=== PATIENT | female | born 1930 | race Caucasian/White ===

== ENCOUNTER 2018-03-03 20:46 | Inpatient (IN) | payer MEDICARE, MEDICAID ==
[~2018-03-03] VITALS: Ht 165.1 cm; Wt 61.8 kg
--- NOTE | 2018-03-03 21:00 | NUR ---
PT SENT HERE BY DR. NICHOLSON DUE TO ABNORMAL CHEST XRAY AND C/O COUGHING FOR THE PAST SEVERAL DAYS. PT AAOX3. PT SA02 95% ON 2L 02 VIA NC. OBSERVED PT COUGHING. PT RESTING IN BED IN LOWEST POSITION. WHEELS LOCKED. CALL LIGHT WITHIN REACH.
--- NOTE | 2018-03-03 21:40 | NUR ---
YANNICK HINTON AT BEDSIDE FOR MSE.
[2018-03-03] MEDS ORDERED: LORA-258 PO (21:59)
[2018-03-03] MEDS ORDERED: POTA10TA15 PO (21:59)
[2018-03-03] MEDS ORDERED: MELA3TAB PO (21:59)
[2018-03-03] MEDS ORDERED: CYAN10009 PO (21:59)
[2018-03-03] MEDS ORDERED: BISA10SU21 RC (21:59)
[2018-03-03] MEDS ORDERED: FURO-151 PO (21:59)
[2018-03-03] MEDS ORDERED: DILT240C88 PO (21:59)
[2018-03-03] MEDS ORDERED: MAGN400O6 PO (21:59)
[2018-03-03] MEDS ORDERED: ALBU2.5V38 IH (21:59)
[2018-03-03] MEDS ORDERED: GUAI118.5 PO (21:59)
[2018-03-03] MEDS ORDERED: METO50TA16 PO (21:59)
[2018-03-03] MEDS ORDERED: LEVO25TA2 PO (21:59)
[2018-03-03] MEDS ORDERED: SIMV10TA6 PO (21:59)
[2018-03-03] MEDS ORDERED: DEXT15DR6 OP (21:59)
[2018-03-03] MEDS ORDERED: ASCO500C18 PO (21:59)
[2018-03-03] MEDS ORDERED: ALLO100T PO (21:59)
[2018-03-03] MEDS ORDERED: LACT-214 PO (21:59)
[2018-03-03] MEDS ORDERED: VALS160T2 PO (21:59)
[2018-03-03] MEDS ORDERED: ACET-2154 PO (21:59)
[2018-03-03] MEDS ORDERED: MULT-213 PO (21:59)
[2018-03-03] MEDS ORDERED: CHOL200078 PO (21:59)
[2018-03-03] MEDS ORDERED: DIGO250T PO (21:59)
[2018-03-03] MEDS ORDERED: IV NORMAL SALINE 1000 ML BAG IV ONE ×2 (22:00→22:45)
[2018-03-03] MEDS ORDERED: ACETAMINOPHEN ES 500 MG TABLET PO ONE (22:00)
[2018-03-03] MEDS ORDERED: BENZONATATE 100 MG CAPSULE PO ONE (22:00)
[2018-03-03 22:10] LABS: BASOPHILS # (AUTO) 0.1 K/uL (0.0-8.0); BASOPHILS % (AUTO) 0.2 % (0.0-2.0); HEMATOCRIT 43.1 % (31.2-41.9); HEMOGLOBIN 14.4 g/dL (10.9-14.3); LYMPHOCYTES # (AUTO) 0.2 K/uL (20.0-40.0); LYMPHOCYTES % (AUTO) 0.8 % (20.5-51.5); MEAN CORPUSCULAR HEMOGLOBIN 27.4 uug (24.7-32.8); MEAN CORPUSCULAR HGB CONC 34 g/dL (32.3-35.6); MEAN CORPUSCULAR VOLUME 81.9 fL (75.5-95.3); MONOCYTES # (AUTO) 0.7 K/uL (2.0-10.0); MONOCYTES % (AUTO) 2.3 % (0.0-11.0); NEUTROPHILS % (AUTO) 96.7 % (38.5-71.5); PLATELET COUNT (AUTO) 446 K/uL (179-408); RED BLOOD CELL COUNT(AUTO) 5.26 MIL/uL (3.63-4.92)
[2018-03-03] MEDS ORDERED: MEROPENEM 1,000 MG in IV NORMAL SALINE 250 ML IV ONE (22:15)
[2018-03-03 22:20] LABS: CARBON DIOXIDE 27 mmol/L (21-32); CHLORIDE 95 mmol/L (98-107); GLUCOSE 155 mg/dL (74-106); POTASSIUM 4.7 mmol/L (3.5-5.1); UREA NITROGEN, BLOOD 51 mg/dL (7-18)
[2018-03-03 22:27] LABS: ABG BASE EXCESS 0.3 mmol/L; ABG HCO3 24.6 mmol/L; ABG PCO2 38.8 mmHg (35.0-45.0); ABG PO2 66.3 mmHg (75.0-100.0); ABG SITE LEFT RADIAL; ABG TOTAL HEMOGLOBIN 14.8 G/dL (12.0-16.0); COHb 1.5 % (0.5-1.5); MetHb 0.3 % (0.0-1.5); O2Hb 91.4 % (94.0-97.0); VENT MODE Nasal Cannula
[2018-03-03] MEDS ORDERED: ACETAMINOPHEN ES 500 MG TABLET ONE (22:28)
[2018-03-03] MEDS ORDERED: BENZONATATE 100 MG CAPSULE ONE (22:28)
[2018-03-03] MEDS ORDERED: MEROPENEM 1 G VIAL IV ONE (22:29)
--- NOTE | 2018-03-03 22:30 | NUR ---
PT RESTING IN BED IN LOWEST POSITION. WHEELS LOCKED. NO ACUTE DISTRESS NOTED. SA02 97% ON 6L O2.
[2018-03-03 22:33] LABS: ALANINE AMINOTRANSFERASE 18 U/L (14-59); ALKALINE PHOSPHATASE 104 U/L (50-136); ASPARTATE AMINOTRANSFERASE 27 U/L (15-37); BILIRUBIN,DIRECT 0.2 mg/dL (0.0-0.2); BILIRUBIN,TOTAL 1.1 mg/dL (0.2-1.0); TOTAL PROTEIN, SERUM 7.4 g/dL (6.4-8.2)
--- NOTE | 2018-03-03 23:35 | NUR ---
PAGED EPPIC PANEL ORDERED. WAITING FOR DR SOTELO TO CALL BACK
--- NOTE | 2018-03-03 23:38 | NUR ---
DR WALTER SPEAKING WITH DR SOTELO
--- NOTE | 2018-03-03 23:40 | NUR ---
PT RESTING IN BED IN LOWEST POSITION. SA02 98% ON 6L O2 VIA FACE MASK. PT APPEARS ANXIOUS AND ATTEMPTING TO TAKE OFF MASK.
[2018-03-03] MEDS ORDERED: LORAZEPAM 2 MG/1 ML VIAL ONE (23:44)
[2018-03-03] MEDS ORDERED: BISACODYL 10 MG SUPP.RECT RC PRN (23:45)
[2018-03-03] MEDS ORDERED: GUAIFENESIN/DEXTROMETHORPHAN 5 ML UDC PO PRN (23:45)
[2018-03-03] MEDS ORDERED: LORAZEPAM 0.5 MG TABLET PO PRN (23:45)
[2018-03-03] MEDS ORDERED: MAGNESIUM HYDROXIDE 30 ML LIQUID UDC PO PRN (23:45)
[2018-03-03] MEDS ORDERED: LORAZEPAM 2 MG/1 ML VIAL IV ONE (23:45)
[2018-03-03] MEDS ORDERED: IV NS 1000 ML 1,000 ML IV PRN (23:48)
[2018-03-04] MEDS ORDERED: ENOXAPARIN SODIUM 30 MG/0.3 ML DISP.SYRIN SQ SCH
[2018-03-04] MEDS ORDERED: ONDANSETRON 4 MG/2 ML VIAL IV PRN
[2018-03-04] MEDS ORDERED: MAGNESIUM HYDROXIDE 30 ML LIQUID UDC PO PRN
[2018-03-04] MEDS ORDERED: CLINDAMYCIN PHOSPHATE 900 MG/6 ML VIAL ONE (00:29)
[2018-03-04] MEDS ORDERED: CLINDAMYCIN PHOSPHATE IV 900 MG in IV DEXTROSE 5% 100 ML IV ONE (00:30)
--- NOTE | 2018-03-04 00:30 | NUR ---
gave report to Etta MOREL
--- NOTE | 2018-03-04 00:44 | NUR ---
Pt. admitted to [facility] , under care of Dr. Sarmiento. Belongs List completed. MRSA Swab completed.
[2018-03-04 01:00] VITALS: BP 140/55
--- NOTE | 2018-03-04 01:30 | NUR ---
Received pt in unit via [facility]. Pt alert and oriented to self, no s/s acute distress noted at this time. Noted to have cough, but no SOB- On 6L O2 via mask. Vital signs WNL. Tele monitor noted to be sinus rhythm with HR at 60. Unit orientation provided. Pertinent assessments done. Bed in low, locked position with bed alarm on. Call light within reach. Safety environment provided. Will continue to monitor closely.
[2018-03-04 03:33] VITALS: BP 128/56
--- NOTE | 2018-03-04 04:05 | NUR ---
CORRECTION FOR PREVIOUS NOTE ENTERED 03/04 130 -- TELE NOTED TO BE A-FIB WITH HR AT 60.
[2018-03-04] MEDS ORDERED: MEROPENEM 1 G VIAL IV ONE (05:20)
[2018-03-04] MEDS: MEROPENEM 1 G in IV NORMAL SALINE 100 ML IV SCH ×3 (06:03→21:27)
--- NOTE | 2018-03-04 06:13 | NUR ---
No respiratory distress throughout the night. Melissa care and back care provided. All needs met. Safety measures enhanced. Will endorse accordingly.
[2018-03-04 06:53] LABS: BASOPHILS # (AUTO) 0.1 K/uL (0.0-8.0); BASOPHILS % (AUTO) 0.3 % (0.0-2.0); HEMATOCRIT 40.1 % (31.2-41.9); HEMOGLOBIN 13.4 g/dL (10.9-14.3); LYMPHOCYTES # (AUTO) 0.2 K/uL (20.0-40.0); LYMPHOCYTES % (AUTO) 0.8 % (20.5-51.5); MEAN CORPUSCULAR HEMOGLOBIN 27.3 uug (24.7-32.8); MEAN CORPUSCULAR HGB CONC 34 g/dL (32.3-35.6); MEAN CORPUSCULAR VOLUME 81.6 fL (75.5-95.3); MONOCYTES # (AUTO) 0.7 K/uL (2.0-10.0); MONOCYTES % (AUTO) 2.8 % (0.0-11.0); NEUTROPHILS # (AUTO) 24.4 K/uL (1.8-8.9); NEUTROPHILS % (AUTO) 96.1 % (38.5-71.5); PLATELET COUNT (AUTO) 372 K/uL (179-408); RED BLOOD CELL COUNT(AUTO) 4.91 MIL/uL (3.63-4.92); WHITE BLOOD COUNT (AUTO) 25.4 K/uL (3.8-11.8)
[2018-03-04 07:03] LABS: CARBON DIOXIDE 25 mmol/L (21-32); CHLORIDE 100 mmol/L (98-107); CREATININE 0.9 mg/dL (0.6-1.3); GLUCOSE 129 mg/dL (74-106); PHOSPHOROUS 3.9 mg/dL (2.5-4.9); POTASSIUM 3.9 mmol/L (3.5-5.1); UREA NITROGEN, BLOOD 49 mg/dL (7-18)
--- NOTE | 2018-03-04 07:31 | NUR ---
patient resting comfortably in bed at this time. on oxygen 6L mask. stable condition, no s/s of respiratory distress. lungs sound like crackles, sounds very congested. bed in locked/low position, side rails up x2, bed alarm on, call light within reach of patient. will continue to monitor.
[2018-03-04] MEDS: LEVOTHYROXINE SODIUM 25 MCG TABLET PO SCH (07:42)
[2018-03-04] MEDS ORDERED: Medication Not On Formulary EA (Multivitamins W-Minerals (Multivitamin With Minerals) 1 PO SCH (09:00)
[2018-03-04] MEDS ORDERED: Medication Not On Formulary EA (Ascorbic Acid (Vitamin C) 500 MG) PO SCH (09:00)
[2018-03-04] MEDS ORDERED: FUROSEMIDE 40 MG TABLET PO SCH (09:00)
[2018-03-04] MEDS ORDERED: LACTOSE FREE FOOD PO SCH (09:00)
[2018-03-04] MEDS: CHOLECALCIFEROL 1,000 UNIT TABLET PO SCH (09:21)
[2018-03-04] MEDS: CYANOCOBALAMIN 1,000 MCG TABLET PO SCH (09:22)
[2018-03-04] MEDS: ASCORBIC ACID 500 MG TABLET PO SCH ×2 (09:23→21:16)
[2018-03-04] MEDS: ALLOPURINOL 100 MG TABLET PO SCH (09:23)
[2018-03-04] MEDS: DILTIAZEM HCL CD 240 MG CAP.SR.24H PO SCH (09:23)
[2018-03-04] MEDS: FUROSEMIDE 40 MG/4 ML VIAL IV SCH ×2 (09:23→21:16)
[2018-03-04] MEDS: VALSARTAN 160 MG TABLET PO SCH (09:23)
[2018-03-04] MEDS: MULTIVIT, IRON, MIN NO. 8, FA TABLET PO SCH (09:23)
[2018-03-04] MEDS: METOPROLOL TARTRATE 50 MG TABLET PO SCH ×2 (09:24→21:00)
--- NOTE | 2018-03-04 09:30 | NUR ---
changed patient's oxygen from O2 6L Mask to O2 4L Nasal Cannula. Saturating within normal limits at this time. will continue to monitor.
[2018-03-04 11:27] VITALS: BP 111/46
[2018-03-04 12:30] LABS: IRON, SERUM 11 ug/dL (50-175)
[2018-03-04 12:52] LABS: CHOLESTEROL < 50 mg/dL (<200); HDL CHOLESTEROL 14 mg/dL (40-60); TRIGLYCERIDES 53 MG/DL (30-150)
[2018-03-04] MEDS: DIGOXIN 250 MCG TABLET PO SCH (13:00)
[2018-03-04 13:21] LABS: THYROID STIMULATING HORMONE 0.705 mIU/mL (0.358-3.740)
--- NOTE | 2018-03-04 13:23 | NUR ---
physical therapy consulting with pt at this time. vitals wnl during activity.
--- NOTE | 2018-03-04 13:26 | NUR ---
non-administration medication: Digoxin 250 mcg - patient's heart rate below 60 (56).
[2018-03-04] MEDS: ALBUTEROL SULFATE 2.5 MG/3 ML NEBU IH PRN (13:34)
[2018-03-04 15:35] VITALS: BP 143/51
[2018-03-04] MEDS: POLYVINYL ALCOHOL OPHT DROPS 15 ML BOTTLE EACHEYE SCH ×2 (17:35→21:16)
[2018-03-04] MEDS: ENSURE WITH FIBER 237 ML LIQUID (CHOCOLATE) PO SCH (17:35)
--- NOTE | 2018-03-04 18:51 | NUR ---
controlled afib on telemetry with HR of 60 at this time. stable condition, no s/s of distress. turned/repositioned q2h hours. reorientation provided. patient's lungs continue to sound congested with crackling. breathing treatment per RT was given, lasix administered. bed in locked/low position, side rails up x2, bed alarm on, call light within reach.
[2018-03-04 19:19] VITALS: BP 128/50
--- NOTE | 2018-03-04 19:50 | NUR ---
Patient's daughter called asking for a "prognosis." I gave her an update on patient condition. Daughter was asking if her mother was going to live or . I stated that's not something I am able to tell her and that pts vital signs have been stable all day. Per dayshift RN, no significant events had occurred. Patient is asleep at this time.
[2018-03-04] MEDS ORDERED: SIMVASTATIN 10 MG TABLET PO SCH (21:00)
[2018-03-04] MEDS: MELATONIN 3 MG TABLET PO SCH (21:16)
[2018-03-04 21:43] LABS: *BILIRUBIN,URIN NEGATIVE (NEGATIVE); *BLOOD, URINE Trace-lysed (NEGATIVE); *KETONES,URINE TRACE (NEGATIVE); *PROTEIN,URINE NEGATIVE (NEGATIVE); *UROBILINOGEN,URINE 0.2 E.U./dl (NORMAL); NITRITE, URINE NEGATIVE (NEGATIVE); UGLUCOSE NEGATIVE (NEGATIVE)
[2018-03-04 21:56] LABS: *CLARITY,URINE SLIGHTLY CLOUDY (CLEAR); *COLOR,URINE YELLOW (YELLOW); LEUKOCYTE ESTERASE ,URINE 1+ (NEGATIVE)
[2018-03-04 21:58] LABS: BACTERIA,URINE FEW /HPF (NONE SEEN); MUCUS,URINE FEW /LPF (0-FEW); SQUAMOUS EPITHELIAL CELL,UR MANY /HPF (NONE SEEN); WBC,URINE 20-50 /HPF (0-3); YEAST,URINE FEW /HPF (NONE SEEN)
[2018-03-04 23:45] VITALS: BP 124/43
--- NOTE | 2018-03-05 02:39 | NUR ---
Relayed critical labs results to on-call Torsten. Blood cultures drawn 02/01 positive for gram-negative coccobacilli. His response was "OK"
[2018-03-05 03:36] VITALS: BP 135/42
[2018-03-05] MEDS: MEROPENEM 1 G in IV NORMAL SALINE 100 ML IV SCH ×2 (05:24→17:06)
[2018-03-05] MEDS: HYDROCODONE/APAP 5-325MG TABLET PO PRN ×2 (05:52→20:36)
[2018-03-05] MEDS: LEVOTHYROXINE SODIUM 25 MCG TABLET PO SCH (06:03)
[2018-03-05 06:18] LABS: ALANINE AMINOTRANSFERASE 12 U/L (14-59); ALKALINE PHOSPHATASE 85 U/L (50-136); ASPARTATE AMINOTRANSFERASE 10 U/L (15-37); BILIRUBIN,TOTAL 0.6 mg/dL (0.2-1.0); CARBON DIOXIDE 29 mmol/L (21-32); CHLORIDE 102 mmol/L (98-107); CREATININE 0.9 mg/dL (0.6-1.3); GLUCOSE 101 mg/dL (74-106); MAGNESIUM 2.3 mg/dL (1.8-2.4); PHOSPHOROUS 2.8 mg/dL (2.5-4.9); POTASSIUM 3.6 mmol/L (3.5-5.1); TOTAL PROTEIN, SERUM 5.9 g/dL (6.4-8.2); UREA NITROGEN, BLOOD 52 mg/dL (7-18)
[2018-03-05 06:19] LABS: BASOPHILS % (AUTO) 0.1 % (0.0-2.0); HEMATOCRIT 38.5 % (31.2-41.9); LYMPHOCYTES # (AUTO) 0.4 K/uL (20.0-40.0); LYMPHOCYTES % (AUTO) 2.3 % (20.5-51.5); MEAN CORPUSCULAR HEMOGLOBIN 27.3 uug (24.7-32.8); MEAN CORPUSCULAR HGB CONC 34 g/dL (32.3-35.6); MEAN CORPUSCULAR VOLUME 81.1 fL (75.5-95.3); MONOCYTES # (AUTO) 0.8 K/uL (2.0-10.0); NEUTROPHILS # (AUTO) 18.2 K/uL (1.8-8.9); NEUTROPHILS % (AUTO) 93.6 % (38.5-71.5); PLATELET COUNT (AUTO) 361 K/uL (179-408); RED BLOOD CELL COUNT(AUTO) 4.75 MIL/uL (3.63-4.92); WHITE BLOOD COUNT (AUTO) 19.5 K/uL (3.8-11.8)
--- NOTE | 2018-03-05 07:23 | NUR ---
patient resting comfortably in bed at this time. on O2 2L Nasal cannula. stable condition, no s/s of distress. will turn patient q2h and provide skin care. wound care consult ordered for bilateral under breast. will continue to monitor. bed alarm on, call light within reach. bed in locked/low position.
[2018-03-05] MEDS: ENSURE WITH FIBER 237 ML LIQUID (CHOCOLATE) PO SCH ×3 (08:18→17:05)
[2018-03-05] MEDS: ALLOPURINOL 100 MG TABLET PO SCH (08:34)
[2018-03-05] MEDS: POLYVINYL ALCOHOL OPHT DROPS 15 ML BOTTLE EACHEYE SCH ×4 (08:34→20:23)
[2018-03-05] MEDS: FUROSEMIDE 40 MG/4 ML VIAL IV SCH (08:34)
[2018-03-05] MEDS: METOPROLOL TARTRATE 50 MG TABLET PO SCH ×2 (08:35→20:23)
[2018-03-05] MEDS: CYANOCOBALAMIN 1,000 MCG TABLET PO SCH (08:35)
[2018-03-05] MEDS: MULTIVIT, IRON, MIN NO. 8, FA TABLET PO SCH (08:35)
[2018-03-05] MEDS: ASCORBIC ACID 500 MG TABLET PO SCH ×2 (08:35→20:23)
[2018-03-05] MEDS: DILTIAZEM HCL CD 240 MG CAP.SR.24H PO SCH (08:36)
[2018-03-05] MEDS: VALSARTAN 160 MG TABLET PO SCH (08:36)
[2018-03-05] MEDS: CHOLECALCIFEROL 1,000 UNIT TABLET PO SCH (08:37)
[2018-03-05] MEDS: ENOXAPARIN SODIUM 30 MG/0.3 ML DISP.SYRIN SQ SCH (08:39)
[2018-03-05 09:21] VITALS: BP 142/67
[2018-03-05] MEDS ORDERED: POTASSIUM CHLORIDE 20 MEQ TAB.PRT.SR PO ONE (09:30)
[2018-03-05 11:30] VITALS: BP 121/46
[2018-03-05] MEDS: DIGOXIN 250 MCG TABLET PO SCH (13:00)
--- NOTE | 2018-03-05 13:01 | NUR ---
non-administration medication - digoxin 250 mcg: patient's HR 58. *Medication pulled out of medication pixis and tablet taken out of packaging but was NOT administered. Medication safely discarded.
[2018-03-05] MEDS: POTASSIUM CHLORIDE 10 MEQ TAB.PRT.SR PO SCH (14:04)
--- NOTE | 2018-03-05 14:33 | NUR ---
WOUND CARE CONSULT: PT PRESENTS WITH SACRAL SCARRING AND BILATERAL BREASTFOLD REDNESS AND RASH, PRESENT ON ADMISSION. MULTIPLE RAISED SKIN LESIONS NOTED TO BACK AND BODY INCLUDING BREASTFOLDS. RECOMMENDATIONS MADE FOR SKIN PROTECTION AND DISCUSSED WITH NURSING STAFF. PT IS INCONTINENT. CURRENT ASHLEY SCORE IS 13. WILL SEE PRN. HINTON IN AGREEMENT WITH PLAN OF CARE. Addendum: 03/05/18 at 1435 by DOE MARSHALL RN Amended: Links added.
[2018-03-05] MEDS: ALBUTEROL SULFATE 2.5 MG/3 ML NEBU IH PRN ×2 (14:36→21:14)
[2018-03-05 15:34] VITALS: BP 111/49
[2018-03-05] MEDS: CLOTRIMAZOLE 1% CREAM 30 GM TUBE TOP SCH (17:05)
[2018-03-05 19:33] VITALS: BP 136/60
[2018-03-05] MEDS: MELATONIN 3 MG TABLET PO SCH (20:23)
--- NOTE | 2018-03-05 21:10 | NUR ---
Pt daughter called for an update. Pt is resting comfortably. PRN [place] given for c/o right shoulder pain. HOB elevated and pt repositioned for comfort. Will continue to monitor.
[2018-03-06 03:25] VITALS: BP 129/53
[2018-03-06] MEDS: ALBUTEROL SULFATE 2.5 MG/3 ML NEBU IH PRN ×2 (04:53→22:27)
[2018-03-06] MEDS: LEVOTHYROXINE SODIUM 25 MCG TABLET PO SCH (06:05)
[2018-03-06] MEDS: HYDROCODONE/APAP 5-325MG TABLET PO PRN (06:06)
[2018-03-06] MEDS: MEROPENEM 1 G in IV NORMAL SALINE 100 ML IV SCH ×2 (06:06→17:35)
[2018-03-06 07:17] LABS: BASOPHILS % (AUTO) 0.1 % (0.0-2.0); HEMOGLOBIN 13.7 g/dL (10.9-14.3); LYMPHOCYTES # (AUTO) 0.8 K/uL (20.0-40.0); MEAN CORPUSCULAR HEMOGLOBIN 27.4 uug (24.7-32.8); MEAN CORPUSCULAR HGB CONC 33 g/dL (32.3-35.6); MEAN CORPUSCULAR VOLUME 82.1 fL (75.5-95.3); MONOCYTES # (AUTO) 0.9 K/uL (2.0-10.0); MONOCYTES % (AUTO) 4.4 % (0.0-11.0); NEUTROPHILS # (AUTO) 18.7 K/uL (1.8-8.9); NEUTROPHILS % (AUTO) 91.5 % (38.5-71.5); RED BLOOD CELL COUNT(AUTO) 4.99 MIL/uL (3.63-4.92); WHITE BLOOD COUNT (AUTO) 20.4 K/uL (3.8-11.8)
[2018-03-06 07:50] LABS: PLATELET COUNT (AUTO) 456 K/uL (179-408)
--- NOTE | 2018-03-06 08:00 | NUR ---
Received pt with no immediate s/s of SOB, pain, distress or discomfort.
[2018-03-06] MEDS: CLOTRIMAZOLE 1% CREAM 30 GM TUBE TOP SCH ×2 (08:56→17:35)
[2018-03-06] MEDS: ENSURE WITH FIBER 237 ML LIQUID (CHOCOLATE) PO SCH ×3 (08:57→17:36)
[2018-03-06] MEDS: POLYVINYL ALCOHOL OPHT DROPS 15 ML BOTTLE EACHEYE SCH ×4 (08:57→21:16)
[2018-03-06] MEDS: CYANOCOBALAMIN 1,000 MCG TABLET PO SCH (08:58)
[2018-03-06] MEDS: DILTIAZEM HCL CD 240 MG CAP.SR.24H PO SCH (09:00)
[2018-03-06] MEDS: ASCORBIC ACID 500 MG TABLET PO SCH (09:00)
[2018-03-06] MEDS: CHOLECALCIFEROL 1,000 UNIT TABLET PO SCH (09:01)
[2018-03-06] MEDS: MULTIVIT, IRON, MIN NO. 8, FA TABLET PO SCH (09:01)
[2018-03-06] MEDS: VALSARTAN 160 MG TABLET PO SCH (09:01)
[2018-03-06] MEDS: POTASSIUM CHLORIDE 10 MEQ TAB.PRT.SR PO SCH (09:02)
[2018-03-06] MEDS: METOPROLOL TARTRATE 50 MG TABLET PO SCH (09:02)
[2018-03-06] MEDS: ALLOPURINOL 100 MG TABLET PO SCH (09:02)
[2018-03-06] MEDS: ENOXAPARIN SODIUM 30 MG/0.3 ML DISP.SYRIN SQ SCH (09:03)
[2018-03-06 09:27] LABS: CARBON DIOXIDE 27 mmol/L (21-32); CHLORIDE 102 mmol/L (98-107); CREATININE 0.8 mg/dL (0.6-1.3); GLUCOSE 109 mg/dL (74-106); MAGNESIUM 2.5 mg/dL (1.8-2.4); PHOSPHOROUS 2.5 mg/dL (2.5-4.9); POTASSIUM 3.9 mmol/L (3.5-5.1); UREA NITROGEN, BLOOD 45 mg/dL (7-18)
--- NOTE | 2018-03-06 10:00 | NUR ---
Pt compliant with medications. Noted decrease in appetite
[2018-03-06 10:33] LABS: BAND % (MANUAL) 1 % (0-10); LYMPHOCYTES % (MANUAL) 3 % (20-40); MONOCYTES % (MANUAL) 5 % (2-10); MYELOCYTES % 1 % (0-0); NEUTROPHILS % (MANUAL) 90 % (42-75)
[2018-03-06 11:01] VITALS: BP 102/38
--- NOTE | 2018-03-06 12:00 | NUR ---
daughter was in the room, most current updated informed to her. Pt is requesting that gives her a call an informs her on recent xray orders
[2018-03-06] MEDS: ACETAMINOPHEN 325 MG TABLET PO PRN (12:41)
[2018-03-06 16:05] VITALS: BP 103/40
--- NOTE | 2018-03-06 16:48 | NUR ---
new orders for speech and swallow evaluation for possible diet modification
--- NOTE | 2018-03-06 17:09 | NUR ---
Patient family reported to FSW that patient was unable to swallow well on Soft diet. RD spoke with RN. RN reported that patient may need to be downgraded pending swallow eval recommendation. Swallow evaluation recommendation states that pt cough is unrelated to swallow function. Addendum: 03/06/18 at [address] Amended: Links added.
--- NOTE | 2018-03-06 17:19 | NUR ---
Patient family member notified FSW that pt was not able to chew/swallow well on Soft diet. RD spoke with RN. RN suggested that pt may need to downgrade diet pending swallow eval. Swallow evaluation recommendation states that pt cough is not related to pt's swallow function. Addendum: 03/06/18 at [address] Amended: Links added.
[2018-03-06] MEDS ORDERED: FUROSEMIDE 20 MG/2 ML VIAL IV ONE (18:30)
[2018-03-06 19:00] VITALS: BP 122/80
[2018-03-06] MEDS: FLUCONAZOLE 200 MG/NS 100ML IV 100 MG in PREMIXED 1 EACH IV SCH ×2 (19:13→19:29)
[2018-03-06] MEDS: Z GUARD REMEDY PASTE 57 GM TUBE TOP PRN (21:16)
[2018-03-06] MEDS: MUPIROCIN 2% OINT 22 GM TUBE NS SCH (21:16)
[2018-03-07 04:00] VITALS: BP 158/64
[2018-03-07] MEDS: MEROPENEM 1 G in IV NORMAL SALINE 100 ML IV SCH ×2 (05:42→17:20)
[2018-03-07] MEDS: ACETAMINOPHEN 325 MG TABLET PO PRN ×2 (06:09→15:22)
[2018-03-07] MEDS: LEVOTHYROXINE SODIUM 25 MCG TABLET PO SCH (06:09)
[2018-03-07 06:52] LABS: CARBON DIOXIDE 31 mmol/L (21-32); CHLORIDE 104 mmol/L (98-107); CREATININE 0.7 mg/dL (0.6-1.3); GLUCOSE 132 mg/dL (74-106); MAGNESIUM 2.3 mg/dL (1.8-2.4); PHOSPHOROUS 2.6 mg/dL (2.5-4.9); UREA NITROGEN, BLOOD 33 mg/dL (7-18)
[2018-03-07 07:11] LABS: BASOPHILS % (AUTO) 0.1 % (0.0-2.0); EOSINOPHILS % (AUTO) 0.1 % (0.0-7.0); HEMATOCRIT 40.6 % (31.2-41.9); HEMOGLOBIN 13.6 g/dL (10.9-14.3); LYMPHOCYTES # (AUTO) 0.5 K/uL (20.0-40.0); LYMPHOCYTES % (AUTO) 2.9 % (20.5-51.5); MEAN CORPUSCULAR HEMOGLOBIN 27.5 uug (24.7-32.8); MEAN CORPUSCULAR HGB CONC 34 g/dL (32.3-35.6); MEAN CORPUSCULAR VOLUME 81.8 fL (75.5-95.3); MONOCYTES # (AUTO) 0.9 K/uL (2.0-10.0); MONOCYTES % (AUTO) 5.6 % (0.0-11.0); NEUTROPHILS # (AUTO) 14.8 K/uL (1.8-8.9); NEUTROPHILS % (AUTO) 91.3 % (38.5-71.5); PLATELET COUNT (AUTO) 409 K/uL (179-408); RED BLOOD CELL COUNT(AUTO) 4.96 MIL/uL (3.63-4.92); WHITE BLOOD COUNT (AUTO) 16.1 K/uL (3.8-11.8)
[2018-03-07] MEDS: DILTIAZEM HCL CD 120 MG CAP.SR.24H PO SCH (08:57)
[2018-03-07] MEDS: VALSARTAN 160 MG TABLET PO SCH (08:58)
[2018-03-07] MEDS: ENOXAPARIN SODIUM 30 MG/0.3 ML DISP.SYRIN SQ SCH (08:59)
[2018-03-07] MEDS: ENSURE WITH FIBER 237 ML LIQUID (CHOCOLATE) PO SCH ×3 (09:00→17:19)
[2018-03-07] MEDS: POLYVINYL ALCOHOL OPHT DROPS 15 ML BOTTLE EACHEYE SCH ×4 (09:01→22:17)
[2018-03-07] MEDS: CLOTRIMAZOLE 1% CREAM 30 GM TUBE TOP SCH ×2 (09:01→17:19)
[2018-03-07] MEDS: MUPIROCIN 2% OINT 22 GM TUBE NS SCH ×2 (09:01→22:19)
--- NOTE | 2018-03-07 09:15 | NUR ---
Pt was complaint with morning medications. Explained to pt regarding disease process and pt seems to understand.
--- NOTE | 2018-03-07 09:53 | NUR ---
Informed by ST that diet will changed to puree with thin liquids
[2018-03-07 11:22] VITALS: BP 110/44
[2018-03-07 15:12] VITALS: BP 135/60
--- NOTE | 2018-03-07 17:36 | NUR ---
Noted pt has been compliant with medications and nursing care. Pt is noted to have been more alert and awake since yesterday. Assisted giving dinner and prison through her soup pt stated she wanted to feed herself. Pt is eating her soup on her own. Pt is able to verbalize what she wants. Notable improvement from yesterday. Still noted minimal dinner intake about 25%. Pt is doing well on puree diet.
--- NOTE | 2018-03-07 17:46 | NUR ---
Pt verbalized she wanted cold milk. Gave pt cold milk
[2018-03-07] MEDS: ALBUTEROL SULFATE 2.5 MG/3 ML NEBU IH PRN (18:29)
[2018-03-07 19:00] VITALS: BP 129/58
--- NOTE | 2018-03-07 19:10 | NUR ---
Received patient sleeping comfortably during initial rounds. No s/s of respiratory distress noted. Safety mesaures maintained. Continue care as planned.
[2018-03-07] MEDS: FLUCONAZOLE 200 MG/NS 100ML IV 100 MG in PREMIXED 1 EACH IV SCH (20:08)
[2018-03-07] MEDS ORDERED: BISACODYL 10 MG SUPP.RECT RC ONE (23:45)
[2018-03-08 04:00] VITALS: BP 120/87
[2018-03-08] MEDS: MEROPENEM 1 G in IV NORMAL SALINE 100 ML IV SCH (05:44)
[2018-03-08] MEDS: LEVOTHYROXINE SODIUM 25 MCG TABLET PO SCH (05:47)
[2018-03-08] MEDS: ACETAMINOPHEN 325 MG TABLET PO PRN ×2 (05:48→17:59)
--- NOTE | 2018-03-08 06:23 | NUR ---
Slept good. Medicated once for complaint of low back pain. Dulcolax supp ordered and given very effective. Had large BM, good navjot care/skin care rendered. No fall/injury. Infrequent non productive cough noted. HOB elevated at all times. No s/s of respiratory distress. No s/s of adverse reaction noted from IV antibiotics. Continue care as planned.
[2018-03-08 06:29] LABS: BASOPHILS % (AUTO) 0.1 % (0.0-2.0); EOSINOPHILS % (AUTO) 0.2 % (0.0-7.0); HEMOGLOBIN 13.7 g/dL (10.9-14.3); LYMPHOCYTES # (AUTO) 0.9 K/uL (20.0-40.0); LYMPHOCYTES % (AUTO) 4.7 % (20.5-51.5); MEAN CORPUSCULAR HEMOGLOBIN 27.1 uug (24.7-32.8); MEAN CORPUSCULAR HGB CONC 33 g/dL (32.3-35.6); MEAN CORPUSCULAR VOLUME 81.2 fL (75.5-95.3); MONOCYTES # (AUTO) 1.1 K/uL (2.0-10.0); NEUTROPHILS # (AUTO) 16.8 K/uL (1.8-8.9); PLATELET COUNT (AUTO) 416 K/uL (179-408); RED BLOOD CELL COUNT(AUTO) 5.05 MIL/uL (3.63-4.92); WHITE BLOOD COUNT (AUTO) 18.9 K/uL (3.8-11.8)
[2018-03-08 06:41] LABS: ALANINE AMINOTRANSFERASE 36 U/L (14-59); ALKALINE PHOSPHATASE 88 U/L (50-136); ASPARTATE AMINOTRANSFERASE 34 U/L (15-37); BILIRUBIN,TOTAL 0.6 mg/dL (0.2-1.0); CARBON DIOXIDE 31 mmol/L (21-32); CHLORIDE 103 mmol/L (98-107); CREATININE 0.6 mg/dL (0.6-1.3); GLUCOSE 106 mg/dL (74-106); POTASSIUM 4.1 mmol/L (3.5-5.1); TOTAL PROTEIN, SERUM 6.5 g/dL (6.4-8.2); UREA NITROGEN, BLOOD 25 mg/dL (7-18)
[2018-03-08 07:06] LABS: BAND % (MANUAL) 4 % (0-10); EOSINOPHILS % (MANUAL) 1 % (0-8); LYMPHOCYTES % (MANUAL) 6 % (20-40); METAMYELOCYTES % 1 % (0-1); MONOCYTES % (MANUAL) 6 % (2-10); MYELOCYTES % 2 % (0-0); NEUTROPHILS % (MANUAL) 80 % (42-75)
--- NOTE | 2018-03-08 07:30 | NUR ---
AWAKE, FORGETFUL, REORIENTED X 3. ASSISTED WITH BREAKFAST , APPETITE BETTER THAN YESTERDAY PER MID LEVEL CLINICIAN. RETURNED BACK TO SLEEP . NO DISTRESS NOTED.
[2018-03-08] MEDS: ENSURE WITH FIBER 237 ML LIQUID (CHOCOLATE) PO SCH ×3 (08:49→17:53)
[2018-03-08] MEDS: ENOXAPARIN SODIUM 30 MG/0.3 ML DISP.SYRIN SQ SCH (08:52)
[2018-03-08] MEDS: CLOTRIMAZOLE 1% CREAM 30 GM TUBE TOP SCH ×2 (08:55→17:53)
[2018-03-08] MEDS: MUPIROCIN 2% OINT 22 GM TUBE NS SCH (08:55)
[2018-03-08] MEDS: Z GUARD REMEDY PASTE 57 GM TUBE TOP PRN (08:55)
[2018-03-08] MEDS: VALSARTAN 160 MG TABLET PO SCH (08:56)
[2018-03-08] MEDS: POLYVINYL ALCOHOL OPHT DROPS 15 ML BOTTLE EACHEYE SCH ×3 (08:56→17:53)
[2018-03-08] MEDS: DILTIAZEM HCL CD 120 MG CAP.SR.24H PO SCH (08:57)
--- NOTE | 2018-03-08 10:00 | NUR ---
RESTING WELL, WATCHING TV. NO DISTRESS NOTED.
[2018-03-08 11:40] VITALS: BP 117/66
--- NOTE | 2018-03-08 12:30 | NUR ---
REFUSED ENSURE CHOCOLATE, WILL TRY VANILLA, PATIENT APPRECIATIVE.
--- NOTE | 2018-03-08 13:30 | NUR ---
DAUGHTER AT BEDSIDE, SUPPORTIVE OF PATIENT CARE, ADDED EYEGLASSES IN BELONGINGS CHECKLIST. APPRECIATIVE OF CARE. AWARE PATIENT FEELING BETTER.
[2018-03-08] MEDS ORDERED: MEROPENEM 1 G in IV NORMAL SALINE 100 ML IV SCH (14:00)
[2018-03-08 15:20] VITALS: BP 126/57
[2018-03-08] MEDS ORDERED: MUPI22OI2 NS (16:56)
[2018-03-08] MEDS ORDERED: BISA10SU61 RC (16:56)
[2018-03-08] MEDS ORDERED: ASCO500C18 PO (16:56)
[2018-03-08] MEDS ORDERED: MAGN400O6 PO (16:56)
[2018-03-08] MEDS ORDERED: FLUC150T PO (16:56)
[2018-03-08] MEDS ORDERED: CHOL100043 PO (16:56)
[2018-03-08] MEDS ORDERED: MERO500V3 IV (16:56)
[2018-03-08] MEDS ORDERED: BISA10SU12 RC (16:56)
[2018-03-08] MEDS ORDERED: CLOT30CR24 TOP (16:56)
[2018-03-08] MEDS ORDERED: DILT120C62 PO (16:56)
[2018-03-08] MEDS ORDERED: ACID1TAB4 PO (16:56)
[2018-03-08] MEDS ORDERED: FURO-152 PO (16:56)
[2018-03-08] MEDS ORDERED: DIGO125T PO (16:56)
--- NOTE | 2018-03-08 17:07 | NUR ---
LEFT MESSAGE FOR DAUGHTER AL OF PATIENT DISCHARGE BACK TO [facility].
[2018-03-08] MEDS ORDERED: CEFTRIAXONE 1 G in IV DEXTROSE 5% 50 ML IV SCH (18:00)
--- NOTE | 2018-03-08 18:04 | NUR ---
SPOKE TO DAUGHTER AL OF DISCHARGE TODAY .
[2018-03-08] MEDS: FLUCONAZOLE 200 MG/NS 100ML IV 100 MG in PREMIXED 1 EACH IV SCH (18:31)
--- NOTE | 2018-03-08 18:50 | NUR ---
REPORT GIVEN TO IGLESIA AT [facility]. AWARE OF DISCHARGE ABOUT 1930 WITH [place] FOR CONTINUED ANTIBIOTIC USE. PATIENT STABLE
--- NOTE | 2018-03-08 19:45 | NUR ---
RECEIVED REPORT THAT PATIENT IS WAITING FOR PICK-UP FOR DISCHARGE TO [facility]. PATIENT IS ASLEEP IN BED. RECEIVING IV ANTIBIOTICS. VS WNL. NO S/S OF PAIN OR DISCOMFORT. NO RESP. DISTRESS NOTED. ON O2 2L NC SATING WELL. BED ALARM ON. CALL LIGHT IN REACH. ALL NEEDS ATTENDED. WILL CONTINUE TO MONITOR AND ASSESS.
[2018-03-08 20:35] VITALS: BP 117/57
--- NOTE | 2018-03-08 21:10 | NUR ---
AMBULANCE TRANSPORT AT BEDSIDE TO [employer]NA[employer] PATIENT. REPORT GIVEN TO AMBULANCE TRANSPORT. VSS. PATIENT DENIES PAIN. A/O X2. ALL NEEDS ATTENDED.
--- NOTE | 2018-03-08 21:25 | NUR ---
PATIENT LEFT FACILITY IN STABLE CONDITION. ALL NEEDS ATTENDED.
== END 2018-03-08 21:25 | DRG 871 ==
LOC: ER 20:50 → TELE 21:02 → UNDOADMIN 03-04 00:39 → TELE 03-04 00:39 → ER 03-04 01:20 → MED 03-05 20:30 → TELE 03-05 20:30 → UNDODISIN 03-08 18:20 → MED 03-08 19:26
PROVIDERS: ADMIT Internal Medicine; ATTEND Internal Medicine
DX: A41.3 Sepsis due to Hemophilus influenzae (principal); J69.0 Pneumonitis due to inhalation of food and vomit; J96.01 Acute respiratory failure with hypoxia; E43 Unspecified severe protein-calorie malnutrition; G93.41 Metabolic encephalopathy; I50.33 Acute on chronic diastolic (congestive) heart failure; D68.59 Other primary thrombophilia; I08.2 Rheumatic disorders of both aortic and tricuspid valves; B37.49 Other urogenital candidiasis; I27.20 Pulmonary hypertension, unspecified; I48.2 Chronic atrial fibrillation; R65.20 Severe sepsis without septic shock; J10.1 Influenza due to other identified influenza virus with other respiratory manifestations; E55.9 Vitamin D deficiency, unspecified; E78.5 Hyperlipidemia, unspecified; E03.9 Hypothyroidism, unspecified; Z68.22 Body mass index [BMI] 22.0-22.9, adult; Z88.1 Allergy status to other antibiotic agents; Z88.0 Allergy status to penicillin; Z22.322 Carrier or suspected carrier of Methicillin resistant Staphylococcus aureus; Z74.09 Other reduced mobility; F03.90 Unspecified dementia, unspecified severity, without behavioral disturbance, psychotic disturbance, mood disturbance, and anxiety; M19.90 Unspecified osteoarthritis, unspecified site; I11.0 Hypertensive heart disease with heart failure; I70.0 Atherosclerosis of aorta
CPT/HCPCS: 36415; 36600; 70030-TC; 71045; 73020; 83550; 83605; 83735; 84100; 84443; 85025; 85730; 87040; 87077; 87086; 92523; 92610; 93005; 93307; 94640; 94664; 97110; 97530; A4217; A4663; A9150; J0696; J1450; J1650; J1940; J2060; J2185; J3490; J7030; J7050; J7060; J8499